=== PATIENT | male | born 1965 | race Caucasian/White ===

== ENCOUNTER 2022-11-20 12:17 | Emergency (ER) | payer OTHER ==
[~2022-11-20] VITALS: Ht 175.3 cm; Wt 96.6 kg
[2022-11-20 12:18] VITALS: BP 156/83; TEMP 97.4; O2SAT 99
[2022-11-20] MEDS ORDERED: MORPHINE 4 MG/ML 1ML VIAL IV ONE (15:05)
[2022-11-20] MEDS ORDERED: ONDANSETRON 4MG 2ML VIAL IV ONE (15:05)
[2022-11-20] MEDS ORDERED: ceFAZolin SOD 2 GM in IV 1 EA IV ONE (15:05)
[2022-11-20] MEDS ORDERED: BOOSTRIX VACCINE (TETANUS/DIPHTH/ACEL. PERTUSSIS) 0.5ML SYR IM.IMMUN ONE (15:25)
[2022-11-20 15:49] LABS: BASO # 0.2 10^3/uL (0.0-0.2); BASO % 1.2 % (0.0-1.0); EOS # 0.3 10^3/uL (0.0-0.5); EOS % 2.5 % (0.0-3.0); HEMATOCRIT 49.8 % (42.0-52.0); HEMOGLOBIN 17.1 g/dl (13.5-17.5); LYMPH # 2.4 10^3/uL (1.5-5.0); MEAN CORPUSCULAR HEMOGLOBIN 31.2 pg (27.0-33.0); MEAN CORPUSCULAR HGB CONC 34.3 g/dl (32.0-36.5); MEAN CORPUSCULAR VOLUME 90.9 fl (80.0-96.0); MONO # 1.2 10^3/uL (0.0-0.8); MONO % 9.5 % (2.0-8.0); NEUTROPHILS # 8.1 10^3/uL (1.5-8.5); NEUTROPHILS % 66.4 % (36.0-66.0); PLATELET COUNT, AUTOMATED 362 10^3/uL (150-450); RED BLOOD COUNT 5.48 10^6/uL (4.30-6.10); WHITE BLOOD COUNT 12.2 10^3/uL (4.0-10.0)
[2022-11-20 16:08] LABS: BLOOD UREA NITROGEN 13 MG/DL (9-23); CALCIUM LEVEL 10.3 MG/DL (8.5-10.1); CARBON DIOXIDE LEVEL 24 MMOL/L (20-31); CHLORIDE LEVEL 102 MMOL/L (98-107); CREATININE FOR GFR 0.73 MG/DL (0.70-1.30); GLOMERULAR FILTRATION RATE > 60.0 (>56); GLUCOSE, FASTING 88 MG/DL (60-100); POTASSIUM SERUM 4.7 MMOL/L (3.5-5.1); SODIUM LEVEL 137 MMOL/L (136-145)
[2022-11-20] MEDS ORDERED: KETOROLAC 30 MG/ML 1ML VIAL IV ONE (16:15)
[2022-11-20] MEDS ORDERED: CEPH500C PO (16:29)
[2022-11-20] MEDS ORDERED: MIRA3350 PO (16:29)
[2022-11-20] MEDS ORDERED: HYDR-3713 PO (16:29)
[2022-11-24] MEDS ORDERED: LISI10TA22 PO (10:42)
[2022-11-24] MEDS ORDERED: ROSU10TA6 PO (10:42)
[2022-11-24] MEDS ORDERED: LEVO75TA4 PO (10:42)
== END 2022-11-20 17:30 | disposition home or self-care (01) ==
LOC: M ED 12:17
DX: S68.521A Partial traumatic transphalangeal amputation of right thumb, initial encounter (principal); S62.521B Displaced fracture of distal phalanx of right thumb, initial encounter for open fracture; W31.2XXA Contact with powered woodworking and forming machines, initial encounter; Y92.009 Unspecified place in unspecified non-institutional (private) residence as the place of occurrence of the external cause; Y93.89 Activity, other specified; Y99.8 Other external cause status; I10 Essential (primary) hypertension
CPT/HCPCS: 73140; 80048; 85025; 86850; 86900; 86901; 90715; 96365; 96375; 99283; J0690; J1885; J2405

== ENCOUNTER 2022-11-25 12:30 | Day surgery (SDC) | payer OTHER ==
[~2022-11-25] VITALS: Ht 175.3 cm; Wt 86.2 kg
[~2022-11-25 12:30] MED LIST: ACETAMINOPHEN 1000MG 100ML IV BAG As Ordered ONE; CEPH500C PO; HYDR-3713 PO; KETOROLAC 60MG 2ML VIAL As Ordered ONE; LEVO75TA4 PO; LIDOCAINE 2% 100MG/5ML SDV (FOR ANES.) As Ordered ONE; LISI10TA22 PO; MIDAZOLAM INJ 2MG/2ML VIAL As Ordered ONE; MIRA3350 PO; ONDANSETRON 4MG 2ML VIAL As Ordered ONE; ROSU10TA6 PO; ceFAZolin SOD 2 GM in IV 1 EA IV ONE; fentaNYL 100 MCG/2 ML INJECTION As Ordered ONE; propofoL 200 MG/20 ML VIAL As Ordered ONE
[2022-11-25] MEDS ORDERED: LR 1,000 ML IV SCH ×2 (13:10→14:25)
[2022-11-25] MEDS ORDERED: BACITRACIN OINTMENT 30GM TUBE As Ordered ONE (13:20)
[2022-11-25] MEDS ORDERED: ONDANSETRON 4MG 2ML VIAL IV PRN (14:25)
[2022-11-25] MEDS ORDERED: PERC5TAB12 PO (14:44)
[2022-11-25] MEDS: oxyCODONE 5MG TAB PO PRN ×2 (14:44→15:14)
[2022-11-25] MEDS: fentaNYL 100 MCG/2 ML INJECTION IV PRN ×4 (14:45→15:07)
[2022-11-25] MEDS ORDERED: HYDROMORPHONE HCL 0.5 MG/ 0.5 ML SYRINGE IV PRN (15:05)
[2022-11-25 16:20] VITALS: BP 121/60; TEMP 97.5; O2SAT 97
== END 2022-11-25 16:29 | disposition home or self-care (01) ==
LOC: M SDC 12:30
PROVIDERS: ATTEND Orthopaedic Surgery Hand Surgery
DX: S67.01XA Crushing injury of right thumb, initial encounter (principal); S62.521B Displaced fracture of distal phalanx of right thumb, initial encounter for open fracture; X58.XXXA Exposure to other specified factors, initial encounter; Y92.89 Other specified places as the place of occurrence of the external cause; I10 Essential (primary) hypertension; E78.00 Pure hypercholesterolemia, unspecified; E03.9 Hypothyroidism, unspecified; R06.83 Snoring; F17.290 Nicotine dependence, other tobacco product, uncomplicated; Z79.899 Other long term (current) drug therapy; Z79.891 Long term (current) use of opiate analgesic; Z79.890 Hormone replacement therapy
CPT/HCPCS: 11012; 26765; 76000; 93005; J0131; J0665; J0690; J1100; J1170; J1885; J2250; J2405; J3010

== ENCOUNTER → 2022-12-04 | Outpatient (CLI) | payer OTHER ==
[~2022-12-04] MED LIST changes: -ACETAMINOPHEN 1000MG 100ML IV BAG As Ordered ONE; -KETOROLAC 60MG 2ML VIAL As Ordered ONE; -LIDOCAINE 2% 100MG/5ML SDV (FOR ANES.) As Ordered ONE; -MIDAZOLAM INJ 2MG/2ML VIAL As Ordered ONE; -ONDANSETRON 4MG 2ML VIAL As Ordered ONE; +PERC5TAB12 PO; -ceFAZolin SOD 2 GM in IV 1 EA IV ONE; -fentaNYL 100 MCG/2 ML INJECTION As Ordered ONE; -propofoL 200 MG/20 ML VIAL As Ordered ONE
== END ==
LOC: M SOG 09:01
PROVIDERS: ATTEND Physician Assistant
DX: S62.521S Displaced fracture of distal phalanx of right thumb, sequela (principal); Y93.9 Activity, unspecified; Y92.9 Unspecified place or not applicable

== ENCOUNTER → 2022-12-18 | Outpatient (CLI) | payer OTHER | LOC: M SOG 07:59 | PROVIDERS: ATTEND Physician Assistant | DX: S62.521D Displaced fracture of distal phalanx of right thumb, subsequent encounter for fracture with routine healing (principal) ==

== ENCOUNTER → 2023-01-01 | Outpatient (CLI) | payer OTHER | LOC: M SOG 09:14 | PROVIDERS: ATTEND Physician Assistant | DX: S62.521D Displaced fracture of distal phalanx of right thumb, subsequent encounter for fracture with routine healing (principal) ==